=== PATIENT | male | born 1970 | race Caucasian/White ===

== ENCOUNTER → 2016-09-03 | Outpatient (CLI) | payer MEDICAID ==
[~2016-09-03] MED LIST: AMOXICILLIN 50500 MG PO; ASPIRIN 81MG TA81 MG PO; ELAVIL25 MG PO; FLEXERIL10 M1 PO; FLEXERIL10 MG PO; GABAPENTIN800 MG PO; HYDROCHLOROTH12.5 M1 PO; IBU-8800 MG PO; KEFLEX 500MG.500 MG PO; LISINOPRIL 10MG10 MG PO; LISINOPRIL 20MG20 MG PO; LORTAB 5/500 501 TAB PO; LORTAB 500 MG-71 TAB PO; MEDROL 4MG. DOSE4 MG PO; METFORMIN500 MG PO; NOMEDS; OXYCODONE30 MG PO; PERCOCET 5/3251 EACH PO; PREDNISONE 10MG10 MG PO; SEPTRA DS 800 M1 TAB PO; TORADOL10 M1 PO; TORADOL10 MG PO; TRAMADOL 50MG T50 MG PO; TYLENOL ES500 M1 PO; ULTRAM 50 MG TA50 MG PO; VALIUM 10MG TAB10 MG PO; VALIUM 5MG TABLE5 MG PO; VICODIN 5/500 T1 TAB PO; VOLTAREN75 MG PO; XANAX 0.5MG TA0.5 MG PO
[2016-09-03 16:37] LABS: AMPHETAMINES/METAMPHETAMINES NEGATIVE ng/mL (<1000)
[2016-09-03 17:37] LABS: LYMPH # 2.5 K/mm3 (0.7-4.5); LYMPH % 32.4 % (10-50)
[2016-09-03 17:58] LABS: BUN 13 mg/dL (7-18)
[2016-09-03 17:59] LABS: GFR (ESTIMATED) 91 ML/MIN (>60)
[2016-09-03 18:00] LABS: HEMOGLOBIN 16.8 g/dL (14.1-18.0)
== END ==
LOC: LAB 15:43
PROVIDERS: Emergency Medicine
DX: Z00.00 Encounter for general adult medical examination without abnormal findings (principal)

== ENCOUNTER 2017-04-06 15:00 | Emergency (ER) | payer MEDICAID ==
[~2017-04-06] VITALS: Ht 172.7 cm; Wt 80.7 kg
[2017-04-06 15:18] LABS: LYMPH # 2.3 K/mm3 (0.7-4.5); LYMPH % 31.8 % (10-50)
[2017-04-06 15:24] LABS: HEMOGLOBIN 13.3 g/dL (14.1-18.0)
--- NOTE | 2017-04-06 15:32 | Emergency Room Report ---
History of Present Illness Time Seen by 1530 Presenting Problem in Triage Pt arrived:Walked Presenting Problem:PT C/O CP AND ADVISES OF SOA WITH AMBULATION. 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 N Clinical Suspician of Infection? N Mental Status: 1 - Regular (Normal Baseline) Sepsis Risk:Low Sepsis Risk Have you (or family members/close friends) recently traveled outside the [place]? N If Yes, where/when: Have you had exposure to infectious disease within the past month? N TB? Other? Specify: Source patient, RN notes reviewed Exam Limitations no limitations Comment comes to th eED with chest pain all day and history of anxiety. Says Dr. Dupree did a stress test on him about a year ago and did not feel he needed cath. He smokes 1 ppd and is on Suboxone for chronic pain and used to take Xanax but that was stopped when he started on suboxone. His workup in the ED today is negative for CAD but he is extremely anxious Cardiac Chest Pain Chest pain indicative of cardiac No ALLERGIES Coded Allergies: codeine (Mild, 01/16/17) Home Medications Active Scripts Diclofenac Sodium (Voltaren 75mg (GEQ)) 75 MG PO BID #60 TAB Ref 2 Prov: 05/04/16 Methylprednisolone (Medrol Dose Quentin) 4 MG PO UD #1 QUENTIN Prov: 01/16/17 Reported Medications LISINOPRIL (Lisinopril) 20 MG PO DAILY Gabapentin (Gabapentin 800MG) 800 MG PO Q8 #90 History Medical History General CAD? No Angina: No [place]: No Hypertension? Yes Hyperlipidemia? No CHF? No DVT? No PE? No COPD? No Asthma? No Anemia? No GERD? No Gastric ulcers? No GI Bleed? No Hernia? No Thyroid Problems? No Hypothyroidism? No CVA? No Seizures? No Diabetes? No Renal Insuffiency? No End Stage Renal Disease? No UTI? No Stones? No BPH? No GB Disease: No Nephritic Syndrome? No Asplenia? No Hepatitis? No Sickle Cell Disease? No Arthritis? Yes Migraines? No Cataracts? No Glaucoma? No MRSA? No HIV? No TB? No Anxiety? Yes Depression? No Cancer? No More? Yes Additional hx: RHEUMATIOD ARTHRITIS Immunization Hx DT/Tetanus 1-4 YRS Surgical Hx Previous Surgery?Y SHOULDER 1999 Oral Surgery Social History Smoking Hx Smoker: Current Every Day Smoker Tobacco: Yes Type Cigarettes Packs/day < 1 Pack Alcohol Alcohol: Yes Review of Systems All Other Systems Reviewed and Negative Constitutional see HPI Cardiovascular see HPI Psychiatric/Neurological see HPI Physical Exam Vital Signs Vital Signs Date Time Temp Pulse Resp B/P Pulse O2 O2 Flow FiO2 Ox Delivery Rate 04/06 1504 98.4 81 18 136/83 96 - WBC >12,000 or <4,000 or 10% bands? 2 or more SIRS Criteria Met? B/P:136/83 MAP:100 Creatinine >2.0? UA output<0.5ml/kg/hr for 2 hrs? Platelet count >100,000? Lactate >2.0mmol/1? INR >1.2 or PTT > than 60 sec? Evidence of Organ Dysfunction? Provider documented clinical suspician of infection? N Sepsis Criteria Count: 0 Sepsis Risk: Low Sepsis Risk General Appearance normal appearance, WD/WN, anxious Respiratory Status No: respiratory distress. 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 No Results/Orders Laboratory Tests 04/06/17 1505: Sodium 136, Potassium 3.9, Chloride 103, Carbon Dioxide 33 H, BUN 7, Creatinine 0.9, Estimated Creat Clear 118, Estimated GFR (MDRD) 91, Glucose 111 H, Calcium 8.4 L, Total Bilirubin 0.2, AST 27, ALT 35, Alkaline Phosphatase 82, Creatine Kinase 596 H, CK-MB (CK-2) Rel Index 0.6, CK and CKMB Interp 3.4, Troponin I < 0.02, Total Protein 6.8, Albumin 3.4, Globulin 3.4 H, Albumin/Globulin Ratio 1.0 L, WBC 7.1, RBC 4.29 L, Hgb 13.3 L, Hct 38.7 L, MCV 90.2, RDW 12.7, Plt Count 188, MPV 8.0, Gran % 47.1, Gran # 3.4, Lymphocytes % 31.8, Monocytes % 8.5 , Eosinophils % 11.5, Basophils % 1.1, Lymphocytes # 2.3, Monocytes # 0.6, Eosinophils # 0.8 H, Basophils # 0.1, PUBS MCHC 34.4, MCH 31.0 Current Medication Orders Sig/Nikkie Start time Last Medication Dose Route Stop Time Status Admin Aspirin 162 MG ONCE ONE 04/06 1530 DC 04/06 PO 04/06 1531 1520 Aspirin 0 .STK-MED ONE 04/06 1518 DC .ROUTE Sodium Chloride 10 ML PRN PRN 04/06 1515 AC IV 04/07 1509 Orders Procedure Date/time Status ELECTROCARDIOGRAM REQUEST 04/06 1510 Active CHEST(2 VIEWS-NOT PORTABLE) 04/06 1510 Active IV SALINE LOCK 04/06 151 Active PRESIDENT [place] 04/06 151 Active CBC WITH AUTO DIFF 04/06 151 Complete CARDIAC ENZYMES 04/06 151 Complete CHEM 12 PROFILE 04/06 1510 Complete Departure Departure Time of Disposition 1613 Disposition DC Home or Self Care(routine) Clinical Impression Primary Impression: Generalized anxiety disorder Secondary Impressions: Atypical chest pain Condition STABLE Referrals Laurie RUDD,Mikal Wahl (Family): 3 Days-Call Office Patient Instructions Anxiety Disorders, DI for Anxiety -- Adult, DI for Atypical Chest Pain, Generalized Anxiety Disorder Additional Instructions Use medicine as directed and followup with PCP or Dr. Dupree for re-evaluation Discharge Counseling Counseled pt/family regarding diagnosis, test results, medications/RX, home care, follow up needs Prescriptions Current Visit Scripts HYDROXYZINE HCL (Hydroxyzine HCl) 25 MG PO TID #60 CAP ED Critical Care Critical Care No If Critical Care minutes are documented, the time involved in the performance of seperately reportable procedures was not counted toward critical care time documented. I directly delivered medical care to this critically ill and/or injured patient. Timely evaluation and treatment was necessary to address the significant organ system(s) dysfunction present in this patient. at 1615
[2017-04-06 15:41] LABS: BUN 7 mg/dL (7-18)
[2017-04-06 15:43] LABS: GFR (ESTIMATED) 91 ML/MIN (>60)
[2017-04-06 16:26] VITALS: BP 142/89
--- NOTE | 2017-04-06 17:25 | RADIOLOGY REPORT PS360 ---
CHEST(2 VIEWS-NOT PORTABLE) Ordering physician: Jameel Garcia MD Age: 46 years Male INDICATION: chest symptomsCP chest pain cough congestion smoker PROCEDURE: CHEST(2 VIEWS-NOT PORTABLE) FINDINGS: Previous 2 view chest from 05-29 used as comparison. Lungs well expanded with slight flattening of diaphragm on lateral view. . No focal pneumonia. Slight coarsening of markings most evident central was seen on previous studies and appear to be baseline for this patient. Likely reflecting history of smoking. No pneumothorax no pleural effusion.... Heart normal size. Normal pulmonary vascularity. Hilar and mediastinal structures appear satisfactory. Chest wall unremarkable. T-spine intact. IMPRESSION -----stable chest with nothing definitely acute. Minor chronic changes
== END 2017-04-06 16:27 | disposition home or self-care (01) ==
LOC: ER 15:00
PROVIDERS: General Practice
DX: F41.1 Generalized anxiety disorder (principal); R07.89 Other chest pain; F17.210 Nicotine dependence, cigarettes, uncomplicated; I10 Essential (primary) hypertension; Z79.899 Other long term (current) drug therapy

== ENCOUNTER → 2017-04-08 | Outpatient (CLI) | payer MEDICAID ==
[~2017-04-08] MED LIST changes: +HYDROXYZINE HCL25 M1 PO
[2017-04-08 19:03] LABS: AMPHETAMINES/METAMPHETAMINES NEGATIVE ng/mL (<1000)
== END ==
LOC: LAB 17:00
PROVIDERS: Emergency Medicine
DX: Z79.899 Other long term (current) drug therapy (principal)

== ENCOUNTER 2017-06-26 19:11 | Emergency (ER) | payer MEDICAID ==
[~2017-06-26] VITALS: Ht 172.7 cm; Wt 77.1 kg
[2017-06-26] MEDS ORDERED: ATORVASTATIN CA20 M1 PO (19:23)
--- OUTSIDE RECORDS SUMMARY | 2017-06-26 19:23 | External Medical Summary Rpt | CCD ---
Author Author , LU Organization LU Address Unknown Phone [email or web address] Care Team Providers Care Is Manager Name Role Phone [facility] Purpose Continuity of Care Document - 09-14-2012 through 2016 Problems Code Diagnosis DOS Provider Status 511.0 511.0 09-14-2012 [facility] W/O [facility] [place] TB 723.1 723.1 09-14-2012 [facility] F41.1 GENERALIZED ANXIETY DISORDER F41.9 ANXIETY DISORDER, UNSPECIFIED L24.0 IRRITANT CONTACT DERMATITIS DUE TO DETERGENTS R07.89 OTHER CHEST PAIN R07.9 CHEST PAIN, UNSPECIFIED S52.501A UNSP FRACTURE OF THE LOWER END OF RIGHT RADIUS, INIT S52.613A DISP FX OF UNSP ULNA STYLOID PROCESS, INIT FOR CLOS FX Allergies, Adverse Reactions, Alerts Type Allergy to substance Adverse Reaction to Substance Substance Reaction Severity SINUS MED Unknown Severe Medications Na ND Rx Da Fi Fi Am Da Di Ph RX Ph St me C No te ll ll ou ys ag ar # ys at rm s nt no ma ic us Or Da si cy ia de te s n re d KE 00 02 0 No TO 40 -2 RO 93 8- Lo LA 79 20 ng C 50 13 er 30 1 Ac MG ti /M ve L AL As 51 02 0 No pi 07 -2 ri 90 8- Lo n 00 20 ng 32 52 13 er 5M 0 G Ac Ta ti bl ve et Vital Signs 09-14-2012 15:24 Name Value Interpretat Reference Comment ion Range BP 95 mm[Hg] Diastolic BP Systolic 145 mm[Hg] Heart 65 /min Rate/Pulse O2% 97 % Respiratory 20 /min Rate 09-14-2012 13:48 Name Value Interpretat Reference Comment ion Range BP 75 mm[Hg] Diastolic BP Systolic 128 mm[Hg] Heart 65 /min Rate/Pulse O2% 96 % Respiratory 20 /min Rate Results Labs Lab Lab Date Result Refere Interp Status Commen Order Detail nces retati t Range on COMPREHENSIVE METABOLIC PANEL (09-14-2012 13:25) Glucose 106 74-106 complet 013 mg/dL ed Bld-mCn 13:25 c BUN 14 7-18 complet Bld-mCn 013 mg/dL ed c 13:25 Creat 0.9 0.8-1.3 complet SerPl-m 013 mg/dL ed Cnc 13:25 ESTIMAT 104 50-200 complet ED 013 ML/MIN ed CREATIN 13:25 INE CLEARAN CE GFR 93 Greater complet (ESTIMA 013 ML/MIN than ed BEVERLEY) 13:25 60 Sodium 142 136-145 complet SerPl-s 013 mmoL/L ed Cnc 13:25 Potassi 4.1 3.5-5.1 complet um 013 mmoL/L ed SerPl-s 13:25 Cnc Chlorid 106 98-107 complet e 013 mmoL/L ed SerPl-s 13:25 Cnc CO2 28 21.0-32 complet SerPl-s 013 mmoL/L .0 ed Cnc 13:25 Calcium 9.0 8.5-10. complet 013 mg/dL 1 ed SerPl-m 13:25 Cnc Prot 7.7 6.4-8.2 complet SerPl-m 013 gm/dL ed Cnc 13:25 Albumin 4.2 3.4-5.0 complet 013 gm/dL ed SerPl-m 13:25 Cnc Globuli 3.5 1.3-3.2 complet n 013 gm/dL ed Ser-mCn 13:25 c Albumin 1.2 UNK 1.1-1.8 complet /Glob 013 ed SerPl-m 13:25 Rto Bilirub 0.2 0.2-1.0 complet 013 mg/dL ed SerPl-m 13:25 Cnc AST 13 U/L 15-37 complet SerPl-c 013 ed Cnc 13:25 ALT 36 U/L 30-65 complet SerPl-c 013 ed Cnc 13:25 ALP 2 121 U/L 50-136 complet SerPl-c 013 ed Cnc 13:25 CK SerPl-cCnc (09-14-2012 13:25) CK 92 U/L 39-308 complet SerPl-c 013 ed Cnc 13:25 CK MB SerPl-mCnc (09-14-2012 13:25) CK MB Less 0.0-3.6 complet SerPl-m 013 than ed Cnc 13:25 0.5 ng/mL TROPONIN I (09-14-2012 13:25) TROPONI Less 0.00-0. complet N I 013 than 06 ed 13:25 0.02 ng/mL CBC with AUTO DIFF (09-14-2012 13:25) WBC # 09-14-2 6.4 4.8-10. complet Bld 013 K/MM3 8 ed Auto 13:25 RBC # 09-14-2 5.38 4.6-6.2 complet Bld 013 M/mm3 ed Auto 13:25 Hgb 14.5 14.1-18 complet Bld-mCn 013 g/dL .0 ed c 13:25 Hct Fr 44.8 % 42.0-52 complet Bld 013 .0 ed 13:25 MCV RBC 83.3 fl 82.2-97 complet 013 .8 ed 13:25 MCH RBC 2 27.0 pg 27-31.2 complet Qn 013 ed Auto 13:25 MEAN 2 32.4 31.8-35 complet CORPUSC 013 g/dl .4 ed ULAR 13:25 HGB CONC RDW RBC 2 15.2 % 11.5-17 complet Auto 013 .5 ed 13:25 Platele 09-14-2 436 142-424 complet t Bld 013 K/mm3 ed Ql 13:25 Manual MEAN 2 7.3 fl 7.4-10. complet PLATELE 013 4 ed T 13:25 VOLUME Granulo 2 58.1 % 37.0-80 complet cytes 013 .0 ed Fr Bld 13:25 Auto LYMPH % 09-14-2 32.6 % 10-50 complet 013 ed 13:25 Monocyt 09-14-2 5.9 % 1.7-9.3 complet es Fr 013 ed Bld 13:25 Auto Eosinop 09-14-2 2.1 % 0.1-12. complet hil Fr 013 0 ed Bld 13:25 Auto Basophi 09-14-2 1.3 % 0.1-2.0 complet ls Fr 013 ed Bld 13:25 Auto Granulo 09-14-2 3.7 1.3-8.0 complet cytes # 013 K/mm3 ed Bld 13:25 Auto Lymphoc 09-14-2 2.1 0.7-4.5 complet ytes Fr 013 K/mm3 ed Bld 13:25 Auto Monocyt 09-14-2 0.4 0.1-1.0 complet es # 013 K/mm3 ed Bld 13:25 Auto Eosinop 09-14-2 0.1 0.0-0.4 complet hil # 013 K/mm3 ed Bld 13:25 Auto Basophi 09-14-2 0.1 0-0.2 complet ls # 013 K/MM3 ed Bld 13:25 Auto Encounters Encounter Start End Date Code Location Performer Type Date Emergency ABEBA Castrejon (ER) 3 13:36 3 15:25 [facility]
--- OUTSIDE RECORDS SUMMARY | 2017-06-26 19:23 | External Medical Summary Rpt | CCD ---
Author Author , [facility] Organization [facility] Address Unknown Phone [email or web address] Care Team Providers Care Human Services Program Specialist Name Role Phone [facility] Purpose Continuity of Care Document - 09-14-2012 through 2016 Problems Code Diagnosis DOS Provider Status 511.0 511.0 09-14-2012 [facility] W/O [facility] OR TB 723.1 723.1 09-14-2012 [facility] F41.1 GENERALIZED ANXIETY DISORDER F41.9 ANXIETY [...] ABEBA Castrejon (ER) 3 13:36 3 15:25 [facility]
[2017-06-26] MEDS ORDERED: ASPIRIN ADULT L81 M3 PO (19:24)
--- OUTSIDE RECORDS SUMMARY | 2017-06-26 19:25 | External Medical Summary Rpt | CCD ---
Author Author , LU Organization [facility] Address Unknown Phone Care Team Providers Care Mobile Security Specialist Name Role Phone [employer] Unavailable Unavailable INC, [employer] DAVE MARTINEZ MD, PSC, Unavailable Unavailable DAVE MARTINEZ MD, PSC SUSANNE DANIEL, SUSANNE Unavailable Unavailable DANIEL MUIR, MUIR Unavailable Unavailable MUIR ALL, MUIR ALL Unavailable Unavailable [facility], Unavailable Unavailable [facility] ABRAHAM SAJI, Unavailable Unavailable ABRAHAM SAJI DUFF KATHY, DUFF KATHY Unavailable Unavailable SHAUNA, SHAUNA Unavailable Unavailable SHAUNA DIANE, SHAUNA Unavailable Unavailable DIANE NATANAEL RHO, NATANAEL Unavailable Unavailable [facility] Unavailable Unavailable INC, [facility], Unavailable Unavailable [facility] Un[facility], [facility] KRISTA JR DWI, KRISTA Unavailable Unavailable JR DWI [facility], Unavailable Unavailable [facility], Unavailable Unavailable [facility] ALECIA [facility]STON Unavailable Unavailable [facility], Unavailable [facility]available [facility], [facility] PETTEY JAM, PETTEY Unavailable Unavailable JAM SADEK MOH, SADEK MOH Unavailable Unavailable JORGE LUIS MAT, Unavailable Unavailable JORGE LUIS MAT SOTINGEANU COLLETTE, Unavailable Unavailable SOTINGEANU COLLETTE [facility] Unavailable Unavailable [facility], [facility] Un[facility], [facility] Unavailable [facility] LIS[facility]TE, LISETTE Unavailable Unavailable Purpose Continuity of Care Document - 04-15-2015 through 2016 Problems Code Diagnosis DOS Provider Status [id number] OTHER LONG 04-08-2017 BOAZ TERM [facility] CURRENT INC DRUG THERAPY R05 COUGH 04-06-2017 [facility] R079 CHEST PAIN 04-06-2017 [facility]PEC[facility] I10 ESSENTIAL 03-29-2017 [facility] PRIMARY PHYSICIANS HYPERTENSIO GROUP N M542 CERVICALGIA 03-29-2017 [facility] L240 IRRITANT 01-16-2017 [facility], DERMATITIS PLLC DUE TO DETERGENTS [id number] PAIN IN 12-05-2016 [facility] [id number] UNSPECIFIED 12-05-2016 [facility] RIGHT WRIST INC INITIAL ENCOUNTER Z720 TOBACCO USE 12-05-2016 [facility] [id number] FX UNS 09-14-2016 [facility] CARPAL BONE PHYSICIANS RT WRIST GROUP INITIAL ENC CLOS FX Z0000 ENCOUNTER 09-03-2016 [facility] GEN ADULT PHYSICIANS MED EXAM GROUP W/O ABNORMAL FIND R109 UNSPECIFIED 08-14-2016 [facility] [place] R1030 LOWER 08-13-2016 [facility]OMINAL [facility], PAIN PLLC UNSPECIFIED R338 OTHER 08-13-2016 [facility] RETENTION [facility]YS[facility]ANS, OF URINE PLLC G8911 ACUTE PAIN 08-08-2016 [facility] DUE TO OF TRAUMA [facility] W64184 PAIN IN 08-08-2016 [facility] UNSPECIFIED [facility] LIMB R937 ABN FIND ON 08-08-2016 [facility] OTH PART l [facility] ETAL SYS [id number] UNSPECIFIED 08-08-2016 [facility] OPEN WOUND [facility] UNS SHOULDER INITIAL ENC [id number] UNSPECIFIED 08-08-2016 [facility] FALL [facility] INITIAL l ENCOUNTER Associates M545 LOW BACK 06-04-2016 [facility] PAIN [facility] INC J21373 PAIN IN 05-31-2016 [facility] RIGHT PHYSICIANS SHOULDER GROUP [id number] FX UNS 05-31-2016 [facility] CARPAL BN PHYSICIANS RT WRST SUB GROUP ENC FX DELAYED HEAL [id number] OTHER FX 05-20-2016 [facility] [place] LOWER RT MEDICAL RADIUS IMAGING ASS SUBSQT CLOS FX RTN [id number] DSPL FX RT 05-20-2016 [facility] [place] ULNA MEDICAL STYLOID PRC IMAGING ASS SUB ENC ITZ FX RTN [id number] PAIN IN 05-04-2016 DAVE MARTINEZ, LEFT , PSC SHOULDER D02392 PAIN IN 05-04-2016 [facility] UNSPECIFIED [facility] HAND INC M5136 OTH 04-20-2016 [facility] [place] INTERVERTEB MEDICAL RAL DISC IMAGING ASS DEGEN LUMBAR REGION M549 DORSALGIA 04-20-2016 [facility] UNSPECIFIED [facility] INC Z0389 ENCOUNTER 04-20-2016 [facility] [place] OBSERV OT MEDICAL SUSPCT DZ & IMAGING ASS COND RULED OUT [id number] UNS FX 03-05-2016 [facility] LOWER END [facility] RT RADIUS INC INITIAL ENC CLOSED FX [id number] UNS FX 03-05-2016 [facility] LOWER UNS [facility]OS[facility] RADIUS INC INITIAL ENC CLOS FX O81670S OTH FX 03-05-2016 [facility] [place] LOWER UNS MEDICAL RADIUS IMAGING ASS SUBSQT ENC CLOS FX RTN [id number] NDSPLC FX 03-05-2016 [place] [place] UNS ULNA MEDICAL STYLOID PRC IMAGING ASS SUB ITZ FX RTN [id number] UNS FX 02-24-2016 [place] LOWER RT MEDICAL RADIUS IMAGING ASS SUBSQT ENC CLOS FX RTN R091 PLEURISY 02-23-2016 [facility] K219 GASTRO-ESOP 02-17-2016 [facility] H [facility]UX [facility] DISEASE INC WITHOUT ESOPHAGITIS L12887 PAIN IN 02-17-2016 [place] [place] RIGHT MEDICAL FOREARM IMAGING ASS N58680 PAIN IN 02-17-2016 [place] [place] RIGHT HAND MEDICAL IMAGING ASS [id number] UNS FX SHFT 02-17-2016 [facility] [place] RT ULNA MEDICAL INITIAL ENC IMAGING ASS CLOS FRACTURE E81690C OTH IA FX 02-17-2016 [place] LOWER RT MEDICAL RADIUS IMAGING ASS INITIAL ENC CLOS FX [id number] DSPL FX RT 02-17-2016 [place] [place] ULNA MEDICAL STYLOID IMAGING ASS PROCESS INIT ENC CLOS FX [id number] NDSPLC FX 02-17-2016 [facility] RT ULNA [facility] STYLOID PRC INC INIT ENC ITZ FX E119 TYPE 2 01-08-2016 [facility] DIABETES [facility] MELLITUS INC WITHOUT COMPLICATIO NS E785 HYPERLIPIDE 01-08-2016 [facility] UNSPECIFIED INC I5189 OTHER 01-08-2016 [place] [facility] ILL-DEFINED [facility] DISEASES R0602 SHORTNESS 01-08-2016 [facility] OF BREATH [facility] INC R609 EDEMA 01-08-2016 [facility] UNSPECIFIED [facility] INC Z8249 FAMILY HX 01-08-2016 [facility] ISCHEMIC [facility] HRT DZ OTH INC DZ CIRC SYSTEM G4700 INSOMNIA 11-19-2015 [facility] UNSPECIFIED PHYSICIANS GROUP G5621 LESION OF 11-19-2015 [facility] ULNAR NERVE PHYSICIANS RIGHT GROUP UPPER LIMB G4733 OBSTRUCTIVE 11-05-2015 [facility] SLEEP [facility] APNEA ADULT INC PEDIATRIC O196VER SPRAIN 11-05-2015 [facility] N EMERGENCY CERVICAL PHYS SPINE INITIAL ENCOUNTR V738MFI UNSPECIFIED 11-05-2015 [facility] [place] INJURY OF RADIOLOGY NECK INITIAL ENCOUNTER [id number] CONTUSION 11-05-2015 [facility] OF RIGHT N EMERGENCY HAND PHYS INITIAL ENCOUNTER G6017JO OTHER SPEC 11-05-2015 [facility] [place] INJURIES RT RADIOLOGY WRIST HAND FINGERS INIT F713HHA PERSON INJ 11-05-2015 [facility] UNS N EMERGENCY NONMOTOR-VE PHYS H ACC NONTRAF INIT ENC P83386 TRIGGER 10-29-2015 [facility] FINGER PHYSICIANS RIGHT GROUP MIDDLE FINGER V53669 TRIGGER 10-29-2015 [facility] FINGER PHYSICIANS RIGHT RING GROUP FINGER F32029 TRIGGER 10-29-2015 [facility] FINGER PHYSICIANS RIGHT GROUP LITTLE FINGER G5601 CARPAL 10-02-2015 [facility] TUNNEL PHYSICIANS SYNDROME GROUP RIGHT UPPER LIMB M7541 IMPINGEMENT 10-02-2015 [facility] SYNDROME PHYSICIANS OF RIGHT GROUP SHOULDER 6929 CONTACT 04-15-2015 [facility] DERMATITIS& PHYSICIANS OTHER GROUP ECZEMA DUE UNSPEC CAUSE V065 NEED 04-15-2015 [facility] PROPHYLACTI PHYSICIANS C GROUP VACCINATION W/[facility]ANUS-D [facility] Medications Na ND Rx Da Fi Fi Am Da Di Ph RX Ph St me C No te ll ll ou ys ag ar # ys at rm s nt no ma ic us Or Da si cy ia de te s n re d GA 68 11 12 90 30 00 HO Ac BA 00 -0 -0 .0 00 ME ti PE 10 7- 1- 00 04 TO ve NT 00 20 20 02 WN IN 70 17 17 45 3 80 PH 80 AR 0 MA MG CY TA OF BL ET CY NT HI AN A 00 11 12 30 30 00 HO Ac PI 60 -0 -0 .0 00 ME ti RI 30 7- 1- 00 06 TO ve N 02 20 20 09 WN EC 63 17 17 41 2 76 PH 81 AR MA MG CY TA OF BL ET CY NT HI AN A AT 60 11 12 30 30 00 HO Ac OR 50 -0 -0 .0 00 ME ti VA 52 7- 1- [address] 57 20 20 09 WN AT 90 17 17 41 IN 9 75 PH AR 20 MA CY MG OF TA BL CY ET NT HI AN A LI 68 11 12 30 30 00 HO Ac SI 18 -0 -0 .0 00 ME ti NO 00 7- 1- 00 06 TO ve MN 98 20 20 09 WN IL 10 17 17 41 3 74 PH 20 AR MA MG CY TA OF BL ET CY NT HI AN A LI 68 10 11 30 30 00 HO Ac SI 18 -1 -0 .0 00 ME ti NO 00 0- 3- 00 06 TO ve MN 98 20 20 09 WN IL 10 17 17 41 3 74 PH 20 AR MA MG CY TA OF BL ET CY NT HI AN A GA 68 10 11 90 30 00 HO Ac BA 00 -1 -0 .0 00 ME ti PE 10 0- 3- 00 04 TO ve NT 00 20 20 02 WN IN 70 17 17 45 3 80 PH 80 AR 0 MA MG CY TA OF BL ET CY NT HI AN A 00 10 11 30 30 00 HO Ac PI 60 -1 -0 .0 00 ME ti RI 30 0- 3- 00 06 TO ve N 02 20 20 09 WN EC 63 17 17 41 2 76 PH 81 AR MA MG CY TA OF BL ET CY NT HI AN A AT 60 10 11 30 30 00 HO Ac OR 50 -1 -0 .0 00 ME ti VA 52 0- 3- [address] 57 20 20 09 WN AT 90 17 17 41 IN 9 75 PH AR 20 MA CY MG OF TA BL CY ET NT HI AN A BU 60 09 10 60 30 00 EA Ac MN 50 -2 -[address] ti OP 50 2- 0- 00 00 SI ve IO 15 20 20 50 DE N 80 17 17 26 HC 1 71 PH L AR 75 MA CY MG OF TA CY BL NT ET HI AN A IN C HY 16 09 10 60 [address] 71 -2 -[address] ti OX 40 0- 3- 00 00 SI ve YZ 08 20 20 50 DE IN 21 17 17 23 E 2 91 PH HC AR L MA 25 CY MG OF CY TA NT BL HI ET AN A IN C LI 68 09 10 30 30 00 HO Ac SI 18 -1 -0 .0 00 ME ti NO 00 2- 6- 00 06 TO ve MN 98 20 20 09 WN IL 10 17 17 41 3 74 PH 20 AR MA MG CY TA OF BL ET CY NT HI AN A AT 60 09 10 30 30 00 HO Ac OR 50 -1 -0 .0 00 ME ti VA 52 2- 6- [address] 57 20 20 09 WN AT 90 17 17 41 IN 9 75 PH AR 20 MA CY MG OF TA BL CY ET NT HI AN A 00 09 10 30 30 00 HO Ac PI 60 -1 -0 .0 00 ME ti RI 30 2- 6- 00 06 TO ve N 02 20 20 09 WN EC 63 17 17 41 2 76 PH 81 AR MA MG CY TA OF BL ET CY NT HI AN A GA 68 09 10 90 30 00 HO Ac BA 00 -1 -0 .0 00 ME ti PE 10 2- 6- 00 04 TO ve NT 00 20 20 02 WN IN 70 17 17 45 3 80 PH 80 AR 0 MA MG CY TA OF BL ET CY NT HI AN A GA 08 09 57 19 00 HO Ac BA 00 -2 -2 .0 00 ME ti PE 10 5- 2- 00 04 TO ve NT 00 20 20 02 WN IN 70 17 17 43 3 13 PH 80 AR 0 MA MG CY TA OF BL ET CY NT HI AN A LI 68 08 09 30 30 00 HO Ac SI 00 -0 -0 .0 00 ME ti NO 10 9- 1- 00 06 TO ve MN 26 20 20 08 WN IL 90 17 17 87 8 52 PH 20 AR MA MG CY TA OF BL ET CY NT HI AN A 00 08 09 30 30 00 HO Ac PI 60 -0 -0 .0 00 ME ti RI 30 9- 1- 00 06 TO ve N 02 20 20 09 WN EC 63 17 17 21 2 55 PH 81 AR MA MG CY TA OF BL ET CY NT HI AN A LI 07 08 30 30 00 HO Ac SI 00 -1 -0 .0 00 ME ti NO 10 0- 4- 00 06 TO ve MN 26 20 20 08 WN IL 90 17 17 87 8 52 PH 20 AR MA MG CY TA OF BL ET CY NT HI AN A 00 07 08 30 30 00 HO Ac PI 60 -1 -0 .0 00 ME ti RI 30 0- 4- 00 06 TO ve N 02 20 20 08 WN EC 63 17 17 69 2 47 PH 81 AR MA MG CY TA OF BL ET CY NT HI AN A AT 60 07 08 30 30 00 HO Ac OR 50 -1 -0 .0 00 ME ti VA 52 0- 4- [address] 57 20 20 08 WN AT 90 17 17 16 IN 9 74 PH AR 20 MA CY MG OF TA BL CY ET NT HI AN A GA 07 08 90 30 00 HO Ac BA 00 -1 -0 .0 00 ME ti PE 10 0- 4- 00 06 TO ve NT 00 20 20 08 WN IN 70 17 17 87 3 53 PH 80 AR 0 MA MG CY TA OF BL ET CY NT HI AN A ME 68 07 07 21 6 00 HO Ac TH 00 -0 -2 .0 00 ME ti YL 10 3- 8- 00 06 TO ve MN 00 20 20 09 WN ED 50 17 17 00 NI 1 47 PH SO AR LO MA NE CY 4 OF MG CY DO NT SE HI PK AN A ZU 54 06 07 24 12 00 EA Ac BS 12 -2 -[address] ti OL 30 6- 1- 00 00 SI ve V 98 20 20 49 DE 8. 63 17 17 24 6- 0 41 PH 2. AR 1 MA MG CY TA OF BL CY ET NT HI SL AN A IN C LI 68 06 07 30 30 00 HO Ac SI 00 -1 -0 .0 00 ME ti NO 10 2- 7- 00 06 TO ve MN 26 20 20 08 WN IL 90 17 17 87 8 52 PH 20 AR MA MG CY TA OF BL ET CY NT HI AN A GA 68 06 07 90 30 00 HO Ac BA 00 -1 -0 .0 00 ME ti PE 10 2- 7- 00 06 TO ve NT 00 20 20 08 WN IN 70 17 17 87 3 53 PH 80 AR 0 MA MG CY TA OF BL ET CY NT HI AN A AT 60 06 07 30 30 00 HO Ac OR 50 -1 -0 .0 00 ME ti VA 52 2- 7- [address] 57 20 20 08 WN AT 90 17 17 16 IN 9 74 PH AR 20 MA CY MG OF TA BL CY ET NT HI AN A 00 06 07 30 30 00 HO Ac PI 60 -1 -0 .0 00 ME ti RI 30 2- 7- 00 06 TO ve N 02 20 20 08 WN EC 63 17 17 69 2 47 PH 81 AR MA MG CY TA OF BL ET CY NT HI AN A AT 60 05 06 30 30 00 HO Ac OR 50 -1 -0 .0 00 ME ti VA 52 2- 9- [address] 57 20 20 08 WN AT 90 17 17 16 IN 9 74 PH AR 20 MA CY MG OF TA BL CY ET NT HI AN A LI 68 05 06 30 30 00 HO Ac SI 00 -1 -0 .0 00 ME ti NO 10 2- 9- 00 06 TO ve MN 26 20 20 08 WN IL 90 17 17 50 8 54 PH 20 AR MA MG CY TA OF BL ET CY NT HI AN A GA 68 05 06 90 30 00 HO Ac BA 00 -1 -0 .0 00 ME ti PE 10 2- 9- 00 06 TO ve NT 00 20 20 08 WN IN 70 17 17 69 3 46 PH 80 AR 0 MA MG CY TA OF BL ET CY NT HI AN A 00 05 06 30 30 00 HO Ac PI 60 -1 -0 .0 00 ME ti RI 30 2- 9- 00 06 TO ve N 02 20 20 08 WN EC 63 17 17 69 2 47 PH 81 AR MA MG CY TA OF BL ET CY NT HI AN A 00 04 05 30 30 00 HO Ac PI 60 -1 -1 .0 00 ME ti RI 30 3- 2- 00 06 TO ve N 02 20 20 08 WN EC 63 17 17 16 2 75 PH 81 AR MA MG CY TA OF BL ET CY NT HI AN A AT 60 04 05 30 30 00 HO Ac OR 50 -1 -1 .0 00 ME ti VA 52 3- 2- [address] 57 20 20 08 WN AT 90 17 17 16 IN 9 74 PH AR 20 MA CY MG OF TA BL CY ET NT HI AN A GA 68 04 05 90 30 00 HO Ac BA 00 -1 -1 .0 00 ME ti PE 10 4- 2- 00 06 TO ve NT 00 20 20 08 WN IN 70 17 17 50 3 53 PH 80 AR 0 MA MG CY TA OF BL ET CY NT HI AN A LI 68 04 05 30 30 00 HO Ac SI 00 -1 -1 .0 00 ME ti NO 10 4- 2- 00 06 TO ve MN 26 20 20 08 WN IL 90 17 17 50 8 54 PH 20 AR MA MG CY TA OF BL ET CY NT HI AN A LI 68 03 04 30 30 00 HO Ac SI 00 -1 -1 .0 00 ME ti NO 10 7- 4- 00 06 TO ve MN 26 20 20 08 WN IL 90 17 17 16 8 77 PH 20 AR MA MG CY TA OF BL ET CY NT HI AN A 00 03 04 30 30 00 HO Ac PI 60 -1 -1 .0 00 ME ti RI 30 7- 4- 00 06 TO ve N 02 20 20 08 WN EC 63 17 17 16 2 75 PH 81 AR MA MG CY TA OF BL ET CY NT HI AN A GA 68 03 04 90 30 00 HO Ac BA 00 -1 -1 .0 00 ME ti PE 10 7- 4- 00 06 TO ve NT 00 20 20 08 WN IN 70 17 17 16 3 76 PH 80 AR 0 MA MG CY TA OF BL ET CY NT HI AN A AT 60 03 04 30 30 00 HO Ac OR 50 -1 -1 .0 00 ME ti VA 52 7- 4- [address] 57 20 20 08 WN AT 90 17 17 16 IN 9 74 PH AR 20 MA CY MG OF TA BL CY ET NT HI AN A AT 60 02 03 30 30 00 HO Ac OR 50 -1 -1 .0 00 ME ti VA 52 7- 7- [address] 57 20 20 08 WN AT 90 17 17 16 IN 9 74 PH AR 20 MA CY MG OF TA BL CY ET NT HI AN A 00 02 03 30 30 00 HO Ac PI 60 -1 -1 .0 00 ME ti RI 30 7- 7- 00 06 TO ve N 02 20 20 08 WN EC 63 17 17 16 2 75 PH 81 AR MA MG CY TA OF BL ET CY NT HI AN A GA 68 02 03 90 30 00 HO Ac BA 00 -1 -1 .0 00 ME ti PE 10 7- 7- 00 06 TO ve NT 00 20 20 08 WN IN 70 17 17 16 3 76 PH 80 AR 0 MA MG CY TA OF BL ET CY NT HI AN A LI 68 02 03 30 30 00 HO Ac SI 00 -1 -1 .0 00 ME ti NO 10 7 7- 06 TO ve MN 26 20 20 08 WN IL 90 17 17 16 8 77 PH 20 AR MA MG CY TA OF BL ET CY NT HI AN A GA 00 01 02 90 30 00 WA Ac BA 09 -2 -1 .0 00 LG ti PE 34 1- 7- 00 01 RE ve NT 44 20 20 67 EN IN 40 17 17 54 S 5 13 09 80 00 0 5 MG TA BL ET 46 01 02 30 30 00 WA Ac PI 12 -2 -1 .0 00 LG ti RI 20 1 7- 00 01 RE ve N 18 20 20 67 EN EC 08 17 17 54 S 7 14 09 81 00 5 MG TA BL ET DI 16 01 02 60 30 00 WA Ac CL 57 -2 -1 .0 00 LG ti OF 10 1 7- 01 RE ve EN 20 20 20 67 EN AC 15 17 17 54 S 0 15 09 SO 00 D 5 EC 75 MG TA B LI 68 01 02 30 30 00 WA Ac SI 18 -2 -1 .0 00 LG ti NO 00 7- 01 RE ve MN 51 20 20 67 EN IL 50 17 17 54 S 3 16 09 20 00 5 MG TA BL ET ES 69 01 02 30 30 00 WA Ac CI 09 -2 -1 .0 00 LG ti TA 70 1- 7- 00 01 RE ve LO 84 20 20 67 EN MN 80 17 17 54 S AM 5 17 09 00 10 5 MG TA BL ET AT 60 12 01 30 30 00 HO Ac OR 50 -1 -0 .0 00 ME ti VA 52 2- 9- [address] 57 20 20 07 WN AT 90 16 17 54 IN 9 43 PH AR 20 MA CY MG OF TA BL CY ET NT HI AN A DI 61 12 01 60 30 00 HO Ac CL 44 -1 -0 .0 00 ME ti OF 20 2- 9- 00 06 TO ve EN 10 20 20 07 WN AC 30 16 17 53 1 51 PH SO AR D MA DR CY 75 OF MG CY NT TA HI B AN A MN 59 12 01 10 5 00 HO Ac ED 74 -1 -0 .0 00 ME ti NI 60 2- 9- 00 06 TO ve SO 17 20 20 07 WN NE 50 16 17 73 9 41 PH 20 AR MA MG CY TA OF BL ET CY NT HI AN A BE 69 12 01 21 7 00 HO Ac NZ 38 -1 -0 .0 00 ME ti ON 70 2- 9- 00 06 TO ve AT 11 20 20 07 WN AT 90 16 17 73 E 5 42 PH 10 AR 0 MA MG CY CA OF PS UL CY E NT HI AN A AZ 68 12 01 6. 5 00 HO Ac IT 18 -1 -0 00 00 ME ti HR 00 2- 9- 0 06 TO ve OM 16 20 20 07 WN YC 01 16 17 73 IN 3 43 PH AR 25 MA 0 CY MG OF TA BL CY ET NT HI AN A ES 68 12 01 30 30 00 HO Ac CI 00 -1 -0 .0 00 ME ti TA 10 2- 9- 00 06 TO ve LO 19 20 20 07 WN MN 60 16 17 73 AM 3 44 PH AR 10 MA CY MG OF TA BL CY ET NT HI AN A 00 12 01 30 30 00 HO Ac PI 60 -1 -0 .0 00 ME ti RI 30 2- 9- 00 06 TO ve N 02 20 20 07 WN EC 63 16 17 54 2 46 PH 81 AR MA MG CY TA OF BL ET CY NT HI AN A LI 00 12 01 30 30 00 HO Ac SI 18 -1 -0 .0 00 ME ti NO 50 2- 9- 00 06 TO ve MN 62 20 20 07 WN IL 01 16 17 54 0 45 PH 20 AR MA MG CY TA OF BL ET CY NT HI AN A GA 68 12 01 90 30 00 HO Ac BA 00 -1 -0 .0 00 ME ti PE 10 2- 9 06 TO ve NT 00 20 20 07 WN IN 70 16 17 54 3 44 PH 80 AR 0 MA MG CY TA OF BL ET CY NT HI AN A Procedures Procedure DOS Code Location Performer Comment DRUG TEST 81749 [facility] GARSIAON PRSMV [facility] QUAL DIR INC INC OPTICAL OBS PER DAY COMPREHEN 89540 [facility] SIVE 7 [facility] METABOLIC INC INC PANEL LIPID 30645 [facility] SANCHEZ PANEL 7 [facility] INC INC DRUG TEST 86393 [facility] GARSIAON PRSMV 7 [facility] QUAL DIR INC INC OPTICAL OBS PER DAY HEMOGLOBI 41780 [facility] SANCHEZ N 7 [facility] MEM [facility]OS[facility] GLYCOSY[place] [address] [facility] SANCHEZ FREE 7 [facility] [place] [address] [facility] THYROID 7 [facility]OS[facility] STIMULATI INC INC NG HORMONE TSH BLOOD 75288 [facility] COUNT 7 [facility] COMPLETE INC INC AUTO&AUTO DIFRNTL WBC FINAL G9551 [facility] REPR ABD 7 MEDICAL IMAG STS IMAGING W/O ASS INCIDNT FND LES NTD: FINAL G9638 [facility] REPORTS 7 MEDICAL W/O DOC IMAGING 1/[place] [address] [facility] [place] ABDOMEN & 7 MEDICAL PELVIS IMAGING W/O ASS CONTRAST MATERIAL RADEX 97758 [facility] WRIST 7 Radiologi COMPLETE liza MINIMUM 3 Associate VIEWS s APPLICATI 13937 [facility] ON SHORT 7 Y OF ARM [facility] SPLINT E HOS FOREARM-H AND STATIC RADEX 54088 [facility] FOREARM 2 7 Radiologi VIEWS liza Associate s GROUND A0425 [facility] 7 E METRO E METRO PER EMS EMS STATUTE MILE AMBULANCE A0429 [facility] SERVICE 7 E HIRAL [facility] BLS EMS EMS EMERGENCY TRANSPORT PHYSICAL 79922 [facility] S[facility] THERAPY 6 [facility] EVALUATIO INC INC N RADEX 83089 [facility] SANCHEZ WRIST 6 [facility] HOS[facility]OS[facility] COMPLETE INC INC MINIMUM 3 VIEWS RADEX 11941 [facility] SPINE 6 [facility] LUMBOSACR INC INC AL MINIMUM 4 VIEWS RADIOLOGI 50175 [facility] SANCHEZ C 6 [facility] EXAMINATI INC INC ON PELVIS 1/2 VIEWS RADEX 05939 [facility] MUIR ALL WRIST 6 MEDICAL COMPLETE IMAGING MINIMUM 3 ASS VIEWS RADEX 30907 [facility] SANCHEZ WRIST 6 [facility] COMPLETE INC INC MINIMUM 3 VIEWS RADEX 13545 [facility] MUIR ALL WRIST 2 [address] V[address] IM[address] UPPER 09279 [facility] SANCHEZ EXTREMITY 6 [facility] W/O INC INC CONTRAST MATERIAL RADEX 30704 [facility] SANCHEZ WRIST 6 [facility] COMPLETE INC INC MINIMUM 3 VIEWS RADEX 56687 [facility] MUIR ALL FOREARM 2 6 MEDICAL VIEWS IMAGING ASS RADEX 90486 [facility] SANCHEZ WRIST 6 MEM HOS[facility]OS[facility] COMPLETE INC INC MINIMUM 3 VIEWS RADEX 42516 [facility] MUIR ALL WRIST 2 6 MEDICAL VIEWS IMAGING ASS RADEX 11116 [facility] MUIR ALL HAND 2 6 MEDICAL VIEWS IMAGING ASS RADEX 20503 [facility] SANCHEZ HAND 6 [facility] MINIMUM 3 INC INC VIEWS THERAPEUT 88843 LAURA LAURA IC 6 [facility] PROPHYLAC INC INC TIC/DX INJECTION SUBQ/IM SHOULDER L3650 [facility] 6 TECHNOLOG TECHNOLOG FIG 8 IES INC IES INC ABDUCT RESTRAINE R PREFAB WRIST L3908 [facility] 6 TECHNOLOG TECHNOLOG ORTHOSIS IES INC IES INC EXT CONTROL COCK-UP PREFAB CV STRS 44836 [facility] SANCHEZ TST 6 [facility] XERS&/OR INC INC RX CONT ECG TRCG ONLY CV STRS 00368 [facility] JORGE LUIS TST 6 PHYSICIAN MAT XERS&/OR S GROUP RX CONT ECG I&R ONLY ECHO 38067 [facility] SANCHEZ TTHRC R-T 6 [facility] 2D INC INC W/WOM-MOD E COMPL SPEC&COLR D ECG 76657 [facility] JORGE LUIS ROUTINE 6 PHYSICIAN MAT ECG S GROUP W/LEAST 12 LDS I&R ONLY ECG 42076 [facility] SANCHEZ ROUTINE 6 [facility] ECG INC INC W/LEAST 12 LDS TRCG ONLY W/O I&R ECG 03655 KRISTA VELASCO JR ROUTINE 6 DWI DWI ECG W/LEAST 12 LDS I&R ONLY ECG 20232 [facility] SANCHEZ ROUTINE 6 [facility] ECG INC INC W/LEAST 12 LDS TRCG ONLY W/O I&R CREATINE 99320 [facility]A SANCHEZ KINASE 6 [facility] TOTAL INC INC CREATINE 20835 AL[facility]A SANCHEZ KINASE MB 6 [facility] FRACTION INC INC ONLY THERAPEUT 26670 [facility] SANCHEZ IC 6 [facility] INJECTION INC [place] [address] LAURA SANCHEZ INFUSION 6 [facility] THERAPY/P INC INC ROPHYLAXI S /DX 1ST TO 1 HR DRUG TEST G0481 LAURA SANCHEZ DEFINITV 6 [facility] DR ID INC INC METH P DAY 8-14 DRUG CL INJECTION J2405 LAURA SANCHEZ 6 [facility] ONDANSETR INC INC ON HCL PER 1 MG COMPREHEN 92046 LAURA SANCHEZ SIVE 6 [facility] [place] [address] LAURA SANCHEZ TROPONIN 6 [facility] QUANTITAT INC INC CHAU BLOOD 10940 LAURA SANCHEZ COUNT 6 [facility] COMPLETE INC INC AUTO&AUTO DIFRNTL WBC COLLECTIO 94770 LAURA SANCHEZ N VENOUS 6 [facility] BLOOD INC INC VENIPUNCT URE RADIOLOGI 58332 [place] C 6 MEDICAL SAJI EXAMINATI IMAGING ON CHEST ASS SINGLE VIEW FRONTAL DRUG TST G0477 LAURA SANCHEZ PRESUMP;C 6 [facility] PBL BEING INC INC READ DC OPT OBV ONLY DRUG TST G0477 LAURA SANCHEZ PRESUMP;C 6 [facility] PBL BEING INC INC READ DC OPT OBV ONLY POLYSOM 90590 LAURA SANCHEZ 6/>YRS 6 [facility] SLEEP 4/> INC INC ADDL NIMO ATTND RADEX 60782 [facility] [place] SPINE 6 RADIOLOGY RHO CERVICAL 2 OR 3 VIEWS RADEX 49745 [facility] [place] HAND 6 RADIOLOGY RHO MINIMUM 3 VIEWS DRUG 85156 LAURA SANCHEZ SCREENING 6 [facility] INC INC BENZODIAZ EPINES 1-12 INJECTION 83813 [facility] 1 [place] 6 PHYSICIAN KAMRAN S GROUP SHEATH/LI GAMENT APONEUROS IS DRUG TST G0477 LAURA SANCHEZ PRESUMP;C 6 [facility] PBL BEING INC INC READ DC OPT OBV ONLY DRUG TST G0477 LAURA SANCHEZ PRESUMP;C 6 [facility] PBL BEING INC INC READ DC OPT OBV ONLY INJ J0702 [facility] BETAMETHA 6 PHYSICIAN KAMRAN SONE S GROUP ACETATE & PHOSPHATE 3 MG ARTHROCEN [id number] [facility] TESIS 6 PHYSICIAN KAMRAN ASPIR&/IN S GROUP J MAJOR JT/BURSA W/O US RADEX 21267 [place] [facility] ALL SHOULDER 6 MEDICAL 1 VIEW IMAGING ASS RADEX 69158 LAURA SANCHEZ SHOULDER 6 [facility] COMPLETE INC INC MINIMUM 2 VIEWS DRUG TST G0477 LAURA SANCHEZ PRESUMP;C 6 [facility] PBL BEING INC INC READ DC OPT OBV ONLY Encounters Encounter Start End Date Code Location Performer Type Date [facility] LAUR[facility] - 7 7 [facility] OUTPATIEN INC [facility] - [facility] [facility]EN [facility] 7 [facility] T OFFICE 19505 [facility] SHAUNA OUTPATIEN 7 7 PHYSICIAN T VISIT S GROUP 15 MINUTES [facility] - [facility] 7 [facility] T OFFICE 47600 [facility] OUTPATIEN 7 7 PHYSICIAN T VISIT S GROUP 15 MINUTES EMERGENCY 87788 [facility] 7 7 [facility] T VISIT E HOS HIGH/URGE NT SEVERITY [facility] - 6 6 [facility] T [facility] 18455 [facility] 6 PHYSICIAN DIANE T VISIT S GROUP 15 MINUTES [facility] - 6 6 [facility] T [facility] 12849 [facility] MD JUAN, T NEW 30 PSC MINUT[facility] - 6 6 [facility] OUT[facility]IEN INC T OFFICE 06022 [facility] OUT[facility]IEN 6 6 [facility] T VISIT 5 INC [facility] - 6 6 [facility] OUTPATIEN INC T OFFICE 13260 [facility] OUTPATIEN 6 6 PHYSICIAN DIANE T VISIT S GROUP 15 MINUTES [facility] - 6 6 [facility] - 6 6 [facility] - 6 6 [facility] INC T OFFICE 14818 [facility] OUTPATIEN 6 6 PHYSICIAN DIANE T VISIT S GROUP 15 MINUTES EMERGENCY 74976 [facility] [place] [place] 6 6 PHYSICIAN DEPARTMEN S, PLLC T VISIT HIGH/URGE NT SEVERITY [facility] - 6 6 [facility] - 6 6 [facility] T [facility] - 6 6 [facility] INC T OFFICE [id number] [facility] JORGE LUIS OUTPATIEN 6 6 PHYSICIAN MAT T NEW 60 S GROUP MINUTES [facility] - 6 6 [facility] OUTPATIEN INC T EMERGENCY 39312 [facility] DEPT 6 6 PHYSICIAN U COLLETTE VISIT S, [facility] HIGH SEVERITY& THREAT FUNJ EMERGENCY 11770 [facility] 6 6 [facility] T VISIT HIGH/URGE NT SEVERITY [facility] - 6 6 [facility] OUT[facility]EN [facility] T OFFICE 74266 [facility] OUTPATIEN 6 6 PHYSICIAN DIANE T VISIT S GROUP 15 MINUTES [facility] - 6 6 [facility]EN [facility] T EMERGENCY 73327 [facility] 6 6 [facility] EMERGENCY T VISIT PHYS HIGH/URGE NT SEVERITY [facility] - 6 6 [facility] - 6 6 [facility]EN [facility] T OFFICE 99361 [facility] PETTEY OUTPATIEN 6 6 PHYSICIAN JAM T VISIT S GROUP 25 MINUTES [facility] - 6 6 [facility] T [facility] - 6 6 [facility]EN [facility] T OFFICE 34288 [facility] PETTE[facility] OUTPATIEN 6 6 PHYSICIAN JAM T NEW 30 S GROUP MINUTES [facility] - 6 6 [facility]EN [facility] T OFFICE 28414 [facility]IC[facility] 5 5 PHYSICIAN DIANE T VISIT S GROUP 15 MINUTES
--- OUTSIDE RECORDS SUMMARY | 2017-06-26 19:25 | External Medical Summary Rpt | CCD ---
Author Author , LU Organization [facility] Address Unknown Phone Care Team Providers Care Ordnance Engineering Technician Name Role Phone [employer] Unavailable Unavailable [...] Unavailable Unavailable INC, [facility], Unavailable Unavailable [facility] Un[facility] Un[facility], [facility] KRISTA JR DWI, KRISTA Unavailable Unavailable JR DWI [facility], [facility]available Unavailable [facility], Unavailable [facility]available [facility] ALECIA ALSTON Unavailable Unavailable [facility], Unavailable [facility]available [facility], [facility] PETTEY JAM, PETTEY Unavailable Unavailable JAM SADEK MOH, SADEK MOH Unavailable Unavailable JORGE LUIS MAT, Unavailable Unavailable JORGE LUIS MAT SOTINGEANU COLLETTE, Unavailable Unavailable SOTINGEANU COLLETTE [facility] Unavailable Unavailable EM[facility]ENCY [facility], [facility] Unavailable [facility], [facility] Unavailable [facility] [facility] L[place], LISETTE Unavailable Unavailable Purpose Continuity of Care Document - 04-15-2015 through 2016 Problems Code Diagnosis DOS Provider Status [id number] OTHER LONG 04-08-2017 [place] [facility] CURRENT INC DRUG THERAPY R05 COUGH 04-06-2017 [facility] R079 CHEST PAIN 04-06-2017 [place] UNSPECIFIED [facility] I10 ESSENTIAL 03-29-2017 [facility]YS[facility]IANS HYPERTENSIO GROUP N M542 CERVICALGIA 03-29-2017 [facility] L240 IRRITANT 01-16-2017 [facility], DERMATITIS PLLC DUE TO DETERGENTS X70402 PAIN IN 12-05-2016 [place] RIGHT [facility]ST [facility] [id number] UNSPECIFIED 12-05-2016 [facility] RIGHT WRIST INC INITIAL ENCOUNTER Z720 TOBACCO USE 12-05-2016 [facility] INC [id number] FX UNS 09-14-2016 [facility] CARPAL BONE PHYSICIANS RT WRIST GROUP INITIAL ENC CLOS FX Z0000 ENCOUNTER 09-03-2016 [facility] GEN ADULT PHYSICIANS MED EXAM GROUP W/O ABNORMAL FIND R109 UNSPECIFIED 08-14-2016 [place] [facility] R1030 LOWER 08-13-2016 [facility] ABDOMINAL PHYSICIANS, PAIN PLLC UNSPECIFIED R338 OTHER 08-13-2016 [facility] RETENTION PHYSICIANS, OF URINE PLLC G8911 ACUTE PAIN 08-08-2016 [facility] DUE TO OF TRAUMA [place] J31732 PAIN IN 08-08-2016 [place] UNSPECIFIED [facility] LIMB R937 ABN FIND ON 08-08-2016 [facility] DX [facility]AG [facility] OTH PART l [facility] ETAL SYS J67457V UNSPECIFIED 08-08-2016 [place] OPEN WOUND [facility] UNS SHOULDER INITIAL ENC C24AMAH UNSPECIFIED 08-08-2016 [facility] FALL [facility]ica INITIAL l ENCOUNTER Associates M545 LOW BACK 06-04-2016 [facility] PAIN [facility] INC B68575 PAIN IN 05-31-2016 [facility] RIGHT PHYSICIANS SHOULDER GROUP K23070W FX UNS 05-31-2016 [facility] CARPAL BN PHYSICIANS RT WRST SUB GROUP ENC FX DELAYED HEAL C16962E OTHER FX 05-20-2016 [place] LOWER RT MEDICAL RADIUS IMAGING ASS SUBSQT CLOS FX RTN [id number] DSPL FX RT 05-20-2016 [place] ULNA MEDICAL STYLOID PRC IMAGING ASS SUB ENC ITZ FX RTN V08884 PAIN IN 05-04-2016 DAVE MARTINEZ, LEFT , PSC SHOULDER F81338 PAIN IN 05-04-2016 [facility] UNSPECIFIED [facility] HAND INC M5136 OTH 04-20-2016 [place] INTERVERTEB MEDICAL RAL DISC IMAGING ASS DEGEN LUMBAR REGION M549 DORSALGIA 04-20-2016 [facility] UNSPECIFIED [facility] INC Z0389 ENCOUNTER 04-20-2016 [place] OBSERV OT MEDICAL SUSPCT DZ & IMAGING ASS COND RULED OUT R72055G UNS FX 03-05-2016 [facility] LOWER END [facility] RT RADIUS INC INITIAL ENC CLOSED FX [id number] UNS FX 03-05-2016 [facility] LOWER UNS [facility] RADIUS INC INITIAL ENC CLOS FX T34249M OTH FX 03-05-2016 [place] LOWER UNS MEDICAL RADIUS IMAGING ASS SUBSQT ENC CLOS FX RTN T33307W NDSPLC FX 03-05-2016 [place] UNS ULNA MEDICAL STYLOID PRC IMAGING ASS SUB ITZ FX RTN X82568E UNS FX 02-24-2016 [place] LOWER RT MEDICAL RADIUS IMAGING ASS SUBSQT ENC CLOS FX RTN R091 PLEURISY 02-23-2016 [facility] K219 GASTRO-ESOP 02-17-2016 [facility] H REFLUX [facility] DISEASE INC WITHOUT ESOPHAGITIS F81876 PAIN IN 02-17-2016 [place] RIGHT MEDICAL FOREARM IMAGING ASS J58034 PAIN IN 02-17-2016 [place] RIGHT HAND MEDICAL IMAGING ASS R15790Q UNS FX SHFT 02-17-2016 [place] RT ULNA MEDICAL INITIAL ENC IMAGING ASS CLOS FRACTURE S69771P OTH IA FX 02-17-2016 [place] LOWER RT MEDICAL RADIUS IMAGING ASS INITIAL ENC CLOS FX G32536O DSPL FX RT 02-17-2016 [place] [facility] MEDICAL STYLOID IMAGING ASS PROCESS INIT ENC CLOS FX U94164Y NDSPLC FX 02-17-2016 [facility] RT ULNA [facility] STYLOID PRC INC INIT ENC ITZ FX E119 TYPE 2 01-08-2016 [facility] DIABETES [facility] MELLITUS INC WITHOUT COMPLICATIO NS E785 HYPERLIPIDE 01-08-2016 [facility]EN[facility]H [facility] UNSPECIFIED INC I5189 OTHER 01-08-2016 [facility] DISEASES R0602 SHORTNESS 01-08-2016 [facility] OF BREATH [facility] INC R609 EDEMA 01-08-2016 [facility] UNSPECIFIED [facility] INC Z8249 FAMILY HX 01-08-2016 [facility] ISCHEMIC [facility] HRT DZ OTH INC DZ CIRC SYSTEM G4700 INSOMNIA 11-19-2015 [facility] UNSPECIFIED PHYSICIANS GROUP G5621 LESION OF 11-19-2015 [facility] ULNAR NERVE PHYSICIANS RIGHT GROUP UPPER LIMB G4733 OBSTRUCTIVE 11-05-2015 [facility] SLEEP [facility] APNEA ADULT INC PEDIATRIC Y396NXG SPRAIN 11-05-2015 [facility]ENCY CERVICAL PHYS SPINE INITIAL ENCOUNTR J475TCV UNSPECIFIED 11-05-2015 [facility] [place] INJURY OF RADIOLOGY NECK INITIAL ENCOUNTER R02550R CONTUSION 11-05-2015 [facility] N EMERGENCY HAND PHYS INITIAL ENCOUNTER W4596HT OTHER SPEC 11-05-2015 [facility] [place] INJURIES RT RADIOLOGY WRIST HAND FINGERS INIT Y422RVE PERSON INJ 11-05-2015 [facility] EMERGENCY NONMOTOR-VE PHYS H ACC NONTRAF INIT ENC K25262 TRIGGER 10-29-2015 [facility] FINGER PHYSICIANS RIGHT GROUP MIDDLE FINGER V08715 TRIGGER 10-29-2015 [facility] FINGER PHYSICIANS RIGHT RING GROUP FINGER P68580 TRIGGER 10-29-2015 [facility] FINGER PHYSICIANS RIGHT GROUP LITTLE FINGER G5601 CARPAL 10-02-2015 [facility] TUNNEL PHYSICIANS SYNDROME GROUP RIGHT UPPER LIMB M7541 IMPINGEMENT 10-02-2015 [facility] SYNDROME PHYSICIANS OF RIGHT GROUP SHOULDER 6929 CONTACT 04-15-2015 [facility] DERMATITIS& PHYSICIANS OTHER GROUP ECZEMA DUE UNSPEC CAUSE V065 NEED 04-15-2015 [facility] PROPHYLACTI PHYSICIANS C GROUP VACCINATION W/[facility]ations Na ND Rx Da Fi Fi [...] 00 7- 1- 00 06 TO ve LA 98 20 20 09 WN IL 10 17 17 41 3 74 PH 20 AR MA MG CY TA OF BL ET CY NT HI AN A LI 68 10 11 30 30 00 HO Ac SI 18 -1 -0 .0 00 ME ti NO 00 0- 3- 00 06 TO ve LA 98 20 20 09 WN IL 10 [...] 09 10 60 30 00 EA Ac LA 50 -2 -[address] ti [...] 00 2- 6- 00 06 TO ve LA 98 20 20 09 WN IL 10 [...] 10 9- 1- 00 06 TO ve LA 26 20 20 08 WN IL 90 [...] 10 0- 4- 00 06 TO ve LA 26 20 20 08 WN IL 90 [...] 10 3- 8- 00 06 TO ve LA 00 20 20 09 WN ED 50 [...] 10 2- 7- 00 06 TO ve LA 26 20 20 08 WN IL 90 [...] 10 2- 9- 00 06 TO ve LA 26 20 20 08 WN IL 90 [...] 10 4- 2- 00 06 TO ve LA 26 20 20 08 WN IL 90 17 17 50 8 54 PH 20 AR MA MG CY TA OF BL ET CY NT HI AN A LI 68 03 04 30 30 00 HO Ac SI 00 -1 -1 .0 00 ME ti NO 10 7- 4- 00 06 TO ve LA 26 20 20 08 WN IL 90 [...] NO 10 7 7- 06 TO ve LA 26 20 20 08 WN IL 90 [...] ti NO 00 7- 01 RE ve LA 51 20 20 67 EN IL 50 17 17 54 S 3 16 09 20 00 5 MG TA BL ET ES 69 01 02 30 30 00 WA Ac CI 09 -2 -1 .0 00 LG ti TA 70 1- 7- 00 01 RE ve LO 84 20 20 67 EN LA 80 17 17 54 S AM 5 [...] CY NT TA HI B AN A LA 59 12 01 10 5 00 HO [...] ve LO 19 20 20 07 WN LA 60 16 17 73 AM 3 44 [...] 50 2- 9- 00 06 TO ve LA 62 20 20 07 WN IL 01 [...] DOS Code Location Performer Comment DRUG TEST 70185 [facility] GARSIAON PRSMV 7 [facility] QUAL DIR INC INC OPTICAL OBS PER DAY COMPREHEN 11762 [facility] SIVE 7 [facility] METABOLIC INC INC PANEL LIPID 77169 [facility] SANCHEZ PANEL 7 [facility] INC INC DRUG TEST 02394 [facility] GARSIAON PRSMV 7 [facility] QUAL DIR INC INC OPTICAL OBS PER DAY HEMOGLOBI 80603 [facility] SANCHEZ N 7 [facility] GLYCOSY[place] [address] [facility] SANCHEZ FREE 7 [facility] [place] [address] [facility] THYROID 7 [facility] STIMULATI INC INC NG HORMONE TSH BLOOD 17930 [facility] S[facility] COUNT 7 [facility] COMPLETE INC INC AUTO&AUTO DIFRNTL WBC FINAL G9551 [facility] MUIR REPR ABD 7 MEDICAL IMAG STS IMAGING W/O ASS INCIDNT FND LES NTD: FINAL G9638 [place] [facility] REPORTS 7 MEDICAL W/O DOC IMAGING 1/[place] [address] [place] [facility] ABDOMEN & 7 MEDICAL PELVIS IMAGING W/O ASS CONTRAST MATERIAL RADEX 78741 [facility] [place] WRIST 7 Radiologi COMPLETE liza MINIMUM 3 Associate VIEWS s APPLICATI 28169 [facility] ON SHORT 7 Y OF ARM [facility] SPLINT E HOS FOREARM-H AND STATIC RADEX 23548 [facility] [place] FOREARM 2 7 Radiologi VIEWS liza Associate s GROUND A0425 [facility] 7 E METRO E METRO PER EMS EMS STATUTE MILE AMBULANCE A0429 [facility] SERVICE 7 E HIRAL [facility] BLS EMS EMS EMERGENCY TRANSPORT PHYSICAL 36990 [facility] S[facility] THERAPY 6 [facility] EVALUATIO INC INC N RADEX 19262 [facility] WRIST 6 [facility] COMPLETE INC INC MINIMUM 3 VIEWS RADEX 86240 [facility] SPINE 6 [facility] LUMBOSACR INC INC AL MINIMUM 4 VIEWS RADIOLOGI 87261 [facility] SANCHEZ C 6 [facility] EXAMINATI INC INC ON PELVIS 1/2 VIEWS RADEX 57672 [facility] MUIR ALL WRIST 6 MEDICAL COMPLETE IMAGING MINIMUM 3 ASS VIEWS RADEX 32469 [facility] SANCHEZ WRIST 6 [facility] COMPLETE INC INC MINIMUM 3 VIEWS RADEX 93873 [facility] MUIR ALL WRIST 2 [address] UPPER 66351 [facility] SANCHEZ EXTREMITY 6 [facility] W/O INC INC CONTRAST MATERIAL RADEX 42706 [facility] SANCHEZ WRIST 6 [facility] COMPLETE INC INC MINIMUM 3 VIEWS RADEX 35208 [facility] MUIR ALL FOREARM 2 6 MEDICAL VIEWS IMAGING ASS RADEX 78016 [facility] SANCHEZ WRIST 6 [facility] COMPLETE INC INC MINIMUM 3 VIEWS RADEX 92324 [facility] MUIR ALL WRIST 2 6 MEDICAL VIEWS IMAGING ASS RADEX 49139 [facility] MUIR ALL HAND 2 6 MEDICAL VIEWS IMAGING ASS RADEX 71547 [facility] HAND 6 [facility] MINIMUM 3 INC INC VIEWS THERAPEUT 70626 [facility] IC 6 [facility] PROPHYLAC INC INC TIC/DX INJECTION SUBQ/IM SHOULDER L3650 [facility] 6 TECHNOLOG TECHNOLOG FIG 8 IES INC IES INC ABDUCT RESTRAINE R PREFAB WRIST L3908 [facility] 6 TECHNOLOG TECHNOLOG ORTHOSIS IES INC IES INC EXT CONTROL COCK-UP PREFAB CV STRS 16365 [facility] SANCHE[facility] TST 6 [facility] XERS&/OR INC INC RX CONT ECG TRCG ONLY CV STRS 48318 [facility] JORGE LUIS TST 6 PHYSICIAN MAT XERS&/OR S GROUP RX CONT ECG I&R ONLY ECHO 47864 [facility] SANCHEZ TTHRC R-T 6 [facility] 2D INC INC W/WOM-MOD E COMPL SPEC&COLR D ECG 08801 [facility] JORGE LUIS ROUTINE 6 PHYSICIAN MAT ECG S GROUP W/LEAST 12 LDS I&R ONLY ECG 81878 [facility] SANCHEZ ROUTINE 6 [facility] ECG INC INC W/LEAST 12 LDS TRCG ONLY W/O I&R ECG 37292 KRISTA VELASCO JR ROUTINE 6 DWI DWI ECG W/LEAST 12 LDS I&R ONLY ECG 62861 [facility] SANCHEZ ROUTINE 6 [facility] ECG INC INC W/LEAST 12 LDS TRCG ONLY W/O I&R CREATINE 37817 [facility] SANC[facility] KINASE 6 [facility] TOTAL INC INC CREATINE 41706 [facility] SANCHEZ KINASE MB 6 [facility] FRACTION INC INC ONLY THERAPEUT 81073 [facility] SANC[facility]Z IC 6 [facility] INJECTION [place] [address] [facility] SANCHEZ INFUSION 6 [facility] THERAPY/P INC INC ROPHYLAXI S /DX 1ST TO 1 HR DRUG TEST G0481 [facility] SANCHEZ DEFINITV 6 [facility] DR ID INC INC METH P DAY 8-14 DRUG CL INJECTION J2405 [facility] SANCHEZ 6 [facility] ONDANSETR INC INC ON HCL PER 1 MG COMPREHEN 40986 [facility] SANC[facility] SIVE 6 [facility] [place] [address] [facility] SANC[facility] TROPONIN 6 [facility] QUANTITAT INC INC CHAU BLOOD 48605 [facility] SANCHE[facility] COUNT 6 [facility] COMPLETE INC INC AUTO&AUTO DIFRNTL WBC COLLECTIO 90866 [facility] SANCHEZ N VENOUS 6 [facility] BLOOD INC INC VENIPUNCT URE RADIOLOGI 75697 [place] [facility] C 6 MEDICAL SAJI EXAMINATI IMAGING ON CHEST ASS SINGLE VIEW FRONTAL DRUG TST G0477 [facility] SANCHEZ PRESUMP;C 6 [facility] PBL BEING INC INC READ DC OPT OBV ONLY DRUG TST G0477 [facility] SANCHE[facility] PRESUMP;C 6 [facility] PBL BEING INC INC READ DC OPT OBV ONLY POLYSOM 76228 [facility] SANCHEZ 6/>YRS 6 [facility] SLEEP 4/> INC INC ADDL NIMO ATTND RADEX 43346 [facility] [place] SPINE 6 RADIOLOGY RHO CERVICAL 2 OR 3 VIEWS RADEX 97831 [facility] [place] HAND 6 RADIOLOGY RHO MINIMUM 3 VIEWS DRUG 98566 [facility] SANCHEZ SCREENING 6 [facility] INC INC BENZODIAZ EPINES 1-12 INJECTION 02128 [facility] 1 TENDON 6 PHYSICIAN KAMRAN S GROUP SHEATH/LI GAMENT APONEUROS IS DRUG TST G0477 [facility] SANCHEZ PRESUMP;C 6 [facility] PBL BEING INC INC READ DC OPT OBV ONLY DRUG TST G0477 [facility] SANCHEZ PRESUMP;C 6 [facility] PBL BEING INC INC READ DC OPT OBV ONLY INJ J0702 [facility] BETAMETHA 6 PHYSICIAN KAMRAN SONE S GROUP ACETATE & PHOSPHATE 3 MG ARTHROCEN 27111 [facility] TESIS 6 PHYSICIAN KAMRAN ASPIR&/IN S GROUP J MAJOR JT/BURSA W/O US RADEX 90297 [place] [facility] ALL SHOULDER 6 MEDICAL 1 VIEW IMAGING ASS RADEX 74412 [facility] SANCHEZ SHOULDER 6 [facility] COMPLETE INC INC MINIMUM 2 VIEWS DRUG TST G0477 [facility] SANC[facility] PRESUMP;C 6 [facility] PBL BEING INC INC READ DC OPT OBV ONLY Encounters Encounter Start End Date Code Location Performer Type Date [facility] - 7 7 [facility] OUTPATIEN INC [facility] - 7 7 [facility] OUTPATIEN INC [facility] OUTPATIEN INC T OFFICE 73893 [facility] OUTPATIEN 7 7 PHYSICIAN T VISIT S GROUP 15 MINUTES [facility] - [facility]IEN INC [facility] - 7 7 [facility] OUTPATIEN INC T OFFICE 71817 [facility] OUTPATIEN 7 7 PHYSICIAN T VISIT S GROUP 15 MINUTES EMERGENCY 56026 [facility] 7 7 Y OF [facility] T VIS[facility] E HOS HIGH/URGE NT SEVERITY [facility] - 6 6 [facility] OUTPATIEN INC T OFFICE 08722 [facility] 6 PHYSICIAN DIANE T VISIT S GROUP 15 MINUTES [facility]URA - 6 6 [facility] OUTPATIEN INC T OFFICE 59313 [facility] MD JUAN, T NEW 30 PSC MINUTES [facility] LAURA - 6 6 [facility] OUTPATIEN INC T OFFICE 81389 [facility] OUTPATIEN 6 6 [facility] T VISIT 5 INC [facility]URA - 6 6 [facility] OUTPATIEN INC T OFFICE 09434 [facility] OUT[facility] 6 6 PHYSICIAN DIANE T VISIT S GROUP 15 MINUTES [facility]OSP[facility] - 6 6 [facility] OUTPATIEN INC [facility] - 6 6 [facility]PATIEN INC [facility] - 6 6 [facility] OUTPATIEN INC T OFFICE 74164 [facility] OUT[facility]EN 6 6 PHYSICIAN DIANE T VISIT S GROUP 15 MINUTES EMERGENCY [address] [facility] 6 6 PHYSICIAN DEPARTMEN S, PLLC T VISIT HIGH/URGE NT SEVERITY [facility] - 6 6 [facility] OUTPATIEN INC T [facility] - 6 6 [facility] OUTPATIEN INC T [facility] - 6 6 [facility] OUTPATIEN INC T OFFICE 14835 [facility] JORGE LUIS OUTPATIEN 6 6 PHYSICIAN MAT T NEW 60 S GROUP MINUTES HOSPITAL [facility] - 6 6 [facility] OUTPATIEN INC T EMERGENCY 06845 KEO WAYNE DEPT 6 6 PHYSICIAN U COLLETTE VISIT S, [facility] HIGH SEVERITY& THREAT FUNJ EMERGENCY 83595 [facility] 6 6 [facility] T VISIT HIGH/URGE NT SEVERITY [facility]OSPITAL [facility] - 6 6 [facility] OUTPATIEN [facility] T OFFICE 07741 [facility] OUTPATIEN 6 6 PHYSICIAN DIANE T VISIT S GROUP 15 MINUTES [facility] - 6 6 [facility] T EMERGENCY [id number] [facility] 6 6 [facility] EM[facility]GENCY T VISIT PHYS HIGH/URGE NT SEVERITY [facility] - 6 6 [facility] - 6 6 [facility] T OFFICE [id number] [facility] OUT[facility] 6 6 PHYSICIAN JAM T [facility]ISIT S GROUP 25 MINUT[facility] - 6 6 [facility] T [facility] - 6 6 [facility] T OFFICE 68548 [facility] 6 6 PHYSICIAN JAM T NEW 30 S GROUP MINUTES [facility] - 6 6 [facility] T OFFICE [id number] [facility] OUTPATICB 5 5 PHYSICIAN DIANE T VISIT S GROUP 15 MINUTES
[2017-06-26] MEDS ORDERED: SUBOXONE 8 MG-21 FIL SL (19:26)
--- OUTSIDE RECORDS SUMMARY | 2017-06-26 19:26 | External Medical Summary Rpt | CCD ---
Demographics Preferred Language [place] Marital Status Unknown Oriental Orthodox Affiliation Unknown Race Unknown Ethnic Group Unknown Author Author , MORA LEIGH Address Unknown Phone Immunization No patient found.
--- OUTSIDE RECORDS SUMMARY | 2017-06-26 19:26 | External Medical Summary Rpt ---
Author Author [facility], [facility] [employer] Organization [facility] [employer] Address Unknown Phone Unavailable Results Drugs identified in Urine by Screen method Observa Value Referen Units Interpr Notes Date tion ce etation Range Positive urine drug screen samples are stored for 7 days. Contact the Lab if confirmation of positives is needed. Ampheta NEGATIV <1000 ng/mL No No Apr 08 mine E informa informa 2017 [Presen tion in tion in 4:00 PM ce] in source source Urine data data by Screen method Barbitura <200 ng/mL No No Apr 08 harvey informati informati 2017 4:00 [Mass/vol on in on in PM ume] in source source Urine by data data Screen method Benzodiaz 200 ng/mL ng/mL No No Apr 08 epines informati informati 2017 4:00 [Mass/vol on in on in PM ume] in source source Serum or data data Plasma by Screen method Cocaine <300 ng/g No No Sep 22 [Mass/vol informati informati 2017 4:00 ume] in on in on in PM Unspecifi source source ed data data specimen Methadone <300 ng/mL No No Sep 22 informati informati 2017 4:00 [Mass/vol on in on in PM ume] in source source Unspecifi data data ed specimen Opiates <300 ng/mL No No Sep 22 [Mass/vol informati informati 2017 4:00 ume] in on in on in PM Unspecifi source source ed data data specimen Phencycli <25 ng/mL No No Sep 22 dine informati informati 2017 4:00 [Mass/vol on in on in PM ume] in source source Unspecifi data data ed specimen 11-Hydr NEGATIV <50 ng/mL No No Mar 22 oxy E informa informa 2017 delta-9 tion in tion in 4:00 PM source source tetrahy data data drocann abinol [Presen ce] in Unspeci fied specime n CBC W Auto Differential panel in Blood Observa Value Referen Units Interpr Notes Date tion ce etation Range Basophils 0 - 0.2 K/MM3 Normal No Sep 20 informati 2017 3:05 [#/volume on in PM ] in source Blood by data Automated count Basophils 0.1 - 2.0 % Normal No Sep 20 /100 informati 2016 3:05 leukocyte on in PM s in source Blood by data Automated count Eosinophi 0.0 - 0.4 K/mm3 High No Sep 20 ls informati 2016 3:05 [#/volume on in PM ] in source Blood by data Automated count Eosinophi 0.1 - % Normal No Sep 20 ls/100 12.0 informati 2016 3:05 leukocyte on in PM s in source Blood by data Automated count Granulocy 1.3 - 8.0 K/mm3 Normal No Sep 20 harvey informati 2016 3:05 [#/volume on in PM ] in source Blood by data Automated count Granulocy 37.0 - % Normal No Sep 20 harvey/100 80.0 informati 2016 3:05 leukocyte on in PM s in source Blood by data Automated count Hematocri 42.0 - % Low No Sep 20 t [Volume 52.0 informati 2017 3:05 on in PM Fraction] source of Blood data Hemoglobi 14.1 - g/dL Low No Sep 20 n 18.0 informati 2016 3:05 [Mass/vol on in PM ume] in source Blood data Lymphocyt 0.7 - 4.5 K/mm3 Normal No Sep 20 es informati 2017 3:05 [#/volume on in PM ] in source Unspecifi data ed specimen by Automated count Lymphocyt 10 - 50 % Normal No Sep 20 es informati 2017 3:05 [#/volume on in PM ] in source Unspecifi data ed specimen by Automated count Erythrocy 27 - 31.2 pg Normal No Sep 20 te mean informati 2017 3:05 corpuscul on in PM ar source hemoglobi data n [Entitic mass] Erythrocy 31.8 - g/dl Normal No Sep 20 te mean 35.4 informati 2017 3:05 corpuscul on in PM ar source hemoglobi data n concentra tion [Mass/vol ume] by Automated count Erythrocy 82.2 - fl Normal No Sep 20 te mean 97.8 informati 2016 3:05 corpuscul on in PM ar volume source [Entitic data volume] by Automated count Monocytes 0.1 - 1.0 K/mm3 Normal No Sep 20 informati 2017 3:05 [#/volume on in PM ] in source Blood by data Automated count Monocytes 1.7 - 9.3 % Normal No Sep 20 /100 informati 2017 3:05 leukocyte on in PM s in source Blood by data Automated count Platelet 7.4 - fl Normal No Sep 20 mean 10.4 informati 2016 3:05 volume on in PM [Entitic source volume] data in Blood by Automated count Platelets 142 - 424 K/mm3 No No Sep 20 informati informati 2017 3:05 [#/volume on in on in PM ] in source source Blood data data Erythrocy 4.6 - 6.2 M/mm3 Low No Sep 20 harvey informati 2016 3:05 [#/volume on in PM ] in source Amniotic data fluid Erythrocy 11.5 - % Normal No Sep 20 te 17.5 informati 2016 3:05 distribut on in PM ion width source [Entitic data volume] by Automated count Leukocyte 4.8 - K/MM3 Normal No Sep 20 s 10.8 informati 2016 3:05 [#/volume on in PM ] in source Blood data
--- OUTSIDE RECORDS SUMMARY | 2017-06-26 19:26 | External Medical Summary Rpt | CCD ---
Demographics Preferred Language Burmese Marital Status Unknown Caodaism Affiliation Unknown Race Unknown Ethnic Group Unknown Author Author , MORA LEIGH Address Unknown Phone Immunization No patient found.
--- NOTE | 2017-06-26 19:34 | Emergency Room Report ---
History of Present Illness Time Seen by 1919 Presenting Problem in Triage Pt arrived:Wheelchair Presenting Problem:c/o chronic low back pain which is worse today. No known injuries per patient Onset of symptoms date/time:/ or onset unknown for:MEDICAL HX UNKNOWN Treatment Prior to Arrival: [employer] Provided by: Sepsis Risk Assessment: Temp: 97.6 B/P: 118/69 MAP: 85 Pulse: 79 Resp: 14 Recent fever? N Clinical Suspician of Infection? N Mental Status: 1 - Regular (Normal Baseline) Sepsis Risk:Low Sepsis Risk Have you (or family members/close friends) recently traveled outside the [place]? N If Yes, where/when: Have you had exposure to infectious disease within the past month? N TB? Other? Specify: Source patient, RN notes reviewed, family, old records Exam Limitations no limitations Comment pt with ongoing lower back pain with no radiation or cauda equina sx- no trauma and no fever or rash - has chronic pain Cardiac Chest Pain Chest pain indicative of cardiac No Timing/Duration this evening Severity moderate ALLERGIES Coded Allergies: codeine (Mild, 01/16/17) Home Medications Reported Medications LISINOPRIL (Lisinopril) 20 MG PO DAILY Gabapentin (Gabapentin 800MG) 800 MG PO Q8 #90 Atorvastatin Calcium 20 MG PO BEDTIME #30 Aspirin (Aspirin EC) 81 MG PO DAILY #30 BUPRENORPHINE HCL/NALOXONE HCL (Suboxone 8 MG-2 MG Sl Film) 1 FILM SL BID #14 History Medical History General CAD? No Angina: No VT: No Hypertension? Yes Hyperlipidemia? No CHF? No DVT? No PE? No COPD? No Asthma? No Anemia? No GERD? No Gastric ulcers? No GI Bleed? No Hernia? No Thyroid Problems? No Hypothyroidism? No CVA? No Seizures? No Diabetes? No Renal Insuffiency? No End Stage Renal Disease? No UTI? No Stones? No BPH? No GB Disease: No Nephritic Syndrome? No Asplenia? No Hepatitis? No Sickle Cell Disease? No Arthritis? Yes Migraines? No Cataracts? No Glaucoma? No MRSA? No HIV? No TB? No Anxiety? Yes Depression? No Cancer? No More? Yes Additional hx: RHEUMATIOD ARTHRITIS Immunization Hx DT/Tetanus 1-4 YRS Surgical Hx Previous Surgery?Y SHOULDER 1998 Oral Surgery Social History Smoking Hx Smoker: Current Every Day Smoker Tobacco: Yes Type Cigarettes Packs/day < 1 Pack Alcohol Alcohol: Yes Drugs none Review of Systems All Other Systems Reviewed and Negative Constitutional denies fever Eyes denies drainage ENT denies: ear discharge, epistaxis, throat pain. Respiratory denies cough, denies shortness of breath, denies wheezing Cardiovascular denies chest pain, denies palpitations, denies syncope Gastrointestinal denies abdominal pain, denies diarrhea, denies vomiting Genitourinary denies: dysuria, frequency, hesitancy, hematuria. Musculoskeletal see HPI, back pain, denies neck pain Skin denies rash Psychiatric/Neurological denies seizure Physical Exam Vital Signs Vital Signs Date Time Temp Pulse Resp B/P Pulse O2 O2 Flow FiO2 Ox Delivery Rate 06/26 1918 97.6 79 14 118/69 97 - WBC >12,000 or <4,000 or 10% bands? 2 or more SIRS Criteria Met? B/P:118/69 MAP:85 Creatinine >2.0? UA output<0.5ml/kg/hr for 2 hrs? Platelet count >100,000? Lactate >2.0mmol/1? INR >1.2 or PTT > than 60 sec? Evidence of Organ Dysfunction? Provider documented clinical suspician of infection? N Sepsis Criteria Count: 0n Sepsis Risk: Low Sepsis Risk General Appearance no apparent distress Eye Exam - bilateral eye PERRL, bilateral eye EOMI Ear, Nose, Throat normal ENT inspection Neck supple Respiratory Status No: respiratory distress. 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 No Results/Orders Orders Procedure Date/time Status DRUG ABUSE SCREEN (TRIAGE) 06/26 1927 Active Departure Departure Time of Disposition 1932 Disposition DC Home or Self Care(routine) Clinical Impression Primary Impression: Lumbar discogenic pain syndrome Condition STABLE Referrals Laurie RUDD,Mikal Wahl (Family) Patient Instructions DI for Lumbar Radiculopathy Additional Instructions will see pcp with neurotin for pill ct at 100 pm or 10 am tomorrow Discharge Counseling Counseled pt/family regarding diagnosis, medications/RX, follow up needs ED Critical Care Critical Care No at 1934
[2017-06-26 20:11] VITALS: BP 118/69
[2017-06-26 20:21] LABS: AMPHETAMINES/METAMPHETAMINES NEGATIVE ng/mL (<1000)
== END 2017-06-26 20:22 | disposition home or self-care (01) ==
LOC: ER 19:11
PROVIDERS: Emergency Medicine
DX: M51.86 Other intervertebral disc disorders, lumbar region (principal); F17.210 Nicotine dependence, cigarettes, uncomplicated; I10 Essential (primary) hypertension; Z79.82 Long term (current) use of aspirin; Z79.899 Other long term (current) drug therapy